=== PATIENT | male | born 1985 | race Hispanic/Latino ===

== ENCOUNTER 2019-03-05 21:05 | Emergency (ER) | payer OTHER, SELFPAY ==
[2019-03-05] MEDS ORDERED: Tetracaine 0.5% OPHTH SOLN/PF 4 ML BOT ONE (21:42)
== END 2019-03-05 22:05 | disposition home or self-care (01) ==
LOC: MADERS 21:05
DX: S05.01XA Injury of conjunctiva and corneal abrasion without foreign body, right eye, initial encounter (principal); F17.210 Nicotine dependence, cigarettes, uncomplicated; W22.8XXA Striking against or struck by other objects, initial encounter
CPT/HCPCS: 99283

== ENCOUNTER 2023-02-16 21:31 | Emergency (ER) | payer SELFPAY ==
[2023-02-16] MEDS ORDERED: Dexamethasone 10 MG/ML VIAL ONE (22:03)
== END 2023-02-16 22:10 | disposition home or self-care (01) ==
LOC: MADERS 21:31
DX: L23.7 Allergic contact dermatitis due to plants, except food (principal); F17.210 Nicotine dependence, cigarettes, uncomplicated
CPT/HCPCS: 96372; 99282; J1100